=== PATIENT | male | born 1965 | race Caucasian/White ===

== ENCOUNTER → 2017-04-11 | Outpatient (CLI) | payer OTHER ==
[~2017-04-11] MED LIST: GABA300C10 PO; IBUP-1223 PO; OXYC-307 PO
[2017-04-11 11:07] LABS: BASOPHILS # (AUTO) 0.09 x10^3/uL (0-0.1); BASOPHILS % (AUTO) 1 % (0-1); EOSINOPHILS # (AUTO) 0.39 x10^3/uL (0-0.4); EOSINOPHILS % (AUTO) 5 % (1-7); LYMPHOCYTES # (AUTO) 1.55 x10^3/uL (1-3.4); LYMPHOCYTES % (AUTO) 20 % (22-44); MD NO; MEAN CORPUSCULAR HEMOGLOBIN 31.5 pg (27.5-34.5); MEAN CORPUSCULAR HGB CONC 33.9 g/dL (33.2-36.2); MEAN CORPUSCULAR VOLUME 92.9 fL (81-97); MEAN PLATELET VOLUME 7.3 fL (7.4-10.4); MONOCYTES # (AUTO) 0.67 x10^3/uL (0.2-0.8); MONOCYTES % (AUTO) 9 % (2-9); NEUTROPHILS # (AUTO) 4.96 x10^3/uL (1.8-6.8); NEUTROPHILS % (AUTO) 65 % (42-75); PLATELET COUNT 246 x10^3/uL (130-400); RED CELL DISTRIBUTION WIDTH 13.2 % (9.4-14.8)
[2017-04-11 11:08] LABS: CULTURE INDICATED? NO; MICROSCOPIC NOT IND
[2017-04-11 11:15] LABS: INTERNATIONAL NORMALIZED RATIO 0.96 (0.93-1.1)
[2017-04-11 11:19] LABS: ALBUMIN 3.8 g/dL (3.4-5.0); ANION GAP 5 mmol/L (5-15); CALCIUM 8.5 mg/dL (8.5-10.1); CHLORIDE 109 mmol/L (98-107)
[2017-04-11 11:22] LABS: ALANINE AMINOTRANSFERASE 22 U/L (12-78); ALKALINE PHOSPHATASE 78 U/L (45-117); BILIRUBIN,TOTAL 0.6 mg/dL (0.2-1.0); TOTAL PROTEIN 7.9 g/dL (6.4-8.2)
[2017-04-11 13:07] LABS: HCT (SEDRATE) 52.1 % (39.2-51.8)
== END | disposition home or self-care (01) ==
LOC: STAR 09:40
PROVIDERS: ATTEND Orthopaedic Surgery Orthopaedic Surgery of the Spine
DX: Z01.818 Encounter for other preprocedural examination (principal); M50.123 Cervical disc disorder at C6-C7 level with radiculopathy
CPT/HCPCS: 36415; 71046; 80053; 80074; 81003; 85025; 85610; 85651; 85730; 86703; 87899; 93005; G0435

== ENCOUNTER 2017-04-17 06:13 | Inpatient (IN) | payer OTHER ==
[~2017-04-17] VITALS: Ht 185.4 cm; Wt 91.5 kg
[~2017-04-17 06:13] MED LIST changes: -OXYC-307 PO
[2017-04-17] MEDS ORDERED: BUPIVACAINE/PF 0.25% ONE (06:27)
[2017-04-17] MEDS ORDERED: BUPIVACAINE/PF 0.5% ONE (06:27)
[2017-04-17] MEDS ORDERED: INDIGO CARMINE 0.8%, 5ML ONE (06:27)
[2017-04-17] MEDS ORDERED: LIDOCAINE 1%, 50ML ONE (06:27)
[2017-04-17] MEDS ORDERED: THROMBIN 5,000 UNIT VIAL TP ONE (06:28)
[2017-04-17] MEDS ORDERED: EPINEPHRINE 1 MG/ML, 1ML ONE (06:28)
[2017-04-17] MEDS ORDERED: BACITRACIN 50,000 UNIT ONE (06:28)
[2017-04-17] MEDS ORDERED: LACTATED RINGERS 1,000 ML IV SCH (06:52)
[2017-04-17] MEDS ORDERED: OXYC-307 PO (07:19)
[2017-04-17] MEDS ORDERED: PNEUMOCOCCAL 23 VACCINE IM-VACC ONE (07:30)
[2017-04-17] MEDS ORDERED: KETAMINE 10 MG/ML, 20ML ONE (07:53)
[2017-04-17] MEDS ORDERED: FENTANYL PF 250 MCG/5ML ONE (07:53)
[2017-04-17] MEDS ORDERED: MIDAZOLAM 1 MG/ML, 2ML ONE (07:53)
[2017-04-17] MEDS ORDERED: REMIFENTANIL 2 MG ONE ×2 (08:01→09:48)
[2017-04-17] MEDS ORDERED: PROPOFOL 150 ML ONE (08:01)
[2017-04-17] MEDS ORDERED: ROCURONIUM 10 MG/ML,10ML ONE (08:13)
[2017-04-17] MEDS ORDERED: ONDANSETRON 2MG/ML, 2ML ONE (08:13)
[2017-04-17] MEDS ORDERED: PROPOFOL 10 MG/ML, 50ML ONE (08:13)
[2017-04-17] MEDS ORDERED: EPHEDRINE 50 MG/ML, 1ML ONE (08:13)
[2017-04-17] MEDS ORDERED: CEFAZOLIN 1,000 MG ONE (08:13)
[2017-04-17] MEDS ORDERED: DEXAMETHASONE 4 MG/ML, 5ML ONE (08:13)
[2017-04-17] MEDS ORDERED: SUCCINYLCHOLINE 20 MG/ML, 10ML ONE (08:13)
[2017-04-17] MEDS ORDERED: ACETAMINOPHEN 325 MG TABLET PO PRN (09:30)
[2017-04-17] MEDS ORDERED: PROMETHAZINE 25 MG/ML, 1ML IV PRN (09:30)
[2017-04-17] MEDS ORDERED: MEPERIDINE/PF 25MG/0.5ML IVPush PRN (09:30)
[2017-04-17] MEDS ORDERED: HYDROmorphone 1 MG/ML, 1ML IV PRN (09:30)
[2017-04-17] MEDS ORDERED: ALBUTEROL SULFATE 2.5 MG/3 ML NPPB PRN ×2 (09:30→15:00)
[2017-04-17] MEDS ORDERED: OXYcodone 5 MG/5 ML ORAL.SOL UDC PO PRN (09:30)
[2017-04-17] MEDS ORDERED: DIAZEPAM 5 MG/ML, 2ML IVPush PRN (09:30)
[2017-04-17] MEDS ORDERED: OXYcodone 5 MG/5 ML ORAL.SOL UDC ONE (11:12)
[2017-04-17] MEDS ORDERED: FENTANYL PF 100 MCG/2ML ONE (11:12)
[2017-04-17] MEDS ORDERED: ACETAMINOPHEN 650 MG/20.3 ML UDC ONE (11:12)
[2017-04-17] MEDS: FENTANYL PF 100 MCG/2ML IV PRN ×2 (11:19→11:33)
[2017-04-17 12:20] VITALS: BP 133/85
[2017-04-17 13:25] VITALS: BP 125/70
[2017-04-17] MEDS ORDERED: DIPHENHYDRAMINE 50 MG CAPSULE PO PRN (14:30)
[2017-04-17] MEDS ORDERED: DIPHENHYDRAMINE 50 MG/ML, 1ML IM PRN (14:30)
[2017-04-17] MEDS ORDERED: CYCLOBENZAPRINE 10 MG TABLET PO PRN (14:30)
[2017-04-17] MEDS ORDERED: BISACODYL 10 MG SUPP PR PRN (14:30)
[2017-04-17] MEDS ORDERED: DIPHENHYDRAMINE 50 MG/ML, 1ML IVPush PRN (14:30)
[2017-04-17] MEDS ORDERED: MAGNESIUM HYDROXIDE 8%, 30ML UDC PO PRN (14:30)
[2017-04-17] MEDS ORDERED: PROMETHAZINE 25 MG/ML, 1ML IM PRN (14:30)
[2017-04-17] MEDS ORDERED: PROMETHAZINE 25 MG SUPP PR PRN (14:30)
[2017-04-17] MEDS ORDERED: LABETALOL 5MG/ML, 20ML IV PRN (14:30)
[2017-04-17] MEDS ORDERED: HYDROmorphone 2 MG/ML, 1ML ONE ×2 (15:32→20:12)
[2017-04-17] MEDS: D5%-0.9% NACL+KCL 20MEQ 1,000 ML IV SCH (15:34)
[2017-04-17] MEDS: HYDROmorphone 1 MG/ML, 1ML IM PRN ×2 (15:36→20:16)
[2017-04-17] MEDS: DEXAMETHASONE 4 MG/ML, 1ML IV SCH ×2 (15:36→21:43)
[2017-04-17] MEDS: CEFAZOLIN PMX 1GM/50ML 50 ML IVPB SCH (15:36)
[2017-04-17 20:01] VITALS: BP 108/71
[2017-04-17] MEDS ORDERED: OXYcodone/APAP 5/325MG TABLET ONE (22:08)
[2017-04-17] MEDS: OXYcodone/APAP 5/325MG TABLET PO PRN (22:09)
[2017-04-18] MEDS: D5%-0.9% NACL+KCL 20MEQ 1,000 ML IV SCH ×2 (00:30→09:53)
[2017-04-18] MEDS: CEFAZOLIN PMX 1GM/50ML 50 ML IVPB SCH ×2 (00:31→07:36)
[2017-04-18 01:32] VITALS: BP 112/64
[2017-04-18] MEDS: OXYcodone/APAP 5/325MG TABLET PO PRN ×3 (02:10→11:16)
[2017-04-18] MEDS: DEXAMETHASONE 4 MG/ML, 1ML IV SCH ×2 (04:50→09:53)
[2017-04-18 07:40] VITALS: BP 113/67
[2017-04-18] MEDS ORDERED: SENNA/DOCUSATE TABLET PO SCH (09:00)
[2017-04-18 13:28] VITALS: BP 114/70
== END 2017-04-18 14:47 | disposition home or self-care (01) | DRG 473 ==
LOC: OUT 06:13 → 4NOR 12:10 → OUT 13:33 → DCLOUNGE 04-18 14:40
PROVIDERS: ADMIT Orthopaedic Surgery Orthopaedic Surgery of the Spine; ATTEND Orthopaedic Surgery Orthopaedic Surgery of the Spine
PROC: 0RB30ZZ Excision of Cervical Vertebral Disc, Open Approach (ICD-10-PCS; 2017-04-17)
PROC: 01N10ZZ Release Cervical Nerve, Open Approach (ICD-10-PCS; 2017-04-17)
PROC: 4A11X4G Monitoring of Peripheral Nervous Electrical Activity, Intraoperative, External Approach (ICD-10-PCS; 2017-04-17)
PROC: 0RG20A0 Fusion of 2 or more Cervical Vertebral Joints with Interbody Fusion Device, Anterior Approach, Anterior Column, Open Approach (ICD-10-PCS; principal; 2017-04-17 08:00)
DX: M48.02 Spinal stenosis, cervical region (principal); L40.9 Psoriasis, unspecified; M50.122 Cervical disc disorder at C5-C6 level with radiculopathy; M47.22 Other spondylosis with radiculopathy, cervical region
CPT/HCPCS: 72040; 90732; C1713; J0171; J0690; J1100; J1170; J2250; J2405; J2704; J3010; J3360; J3490; C1762; J0330; J3480; J7120